=== PATIENT | female | born 1985 | race Caucasian/White ===

== ENCOUNTER 2017-06-20 10:44 | Outpatient (CLI) | payer BC ==
[~2017-06-20] VITALS: Ht 165.1 cm; Wt 93.0 kg
[~2017-06-20 10:44] MED LIST: FER325 PO; PRENAT PO
--- NOTE | 2017-06-20 11:24 | RADRPT ---
PROCEDURE: US OB biophysical profile. CLINICAL INDICATION: decreased movements TECHNIQUE: Multiple sonographic images of the pelvis were obtained. The images were reviewed on a PACS workstation. COMPARISON: No prior studies are available for comparison. FINDINGS: There is a single viable intrauterine gestation. Cardiac activity is present with 146 beats per min cassius. There is a vertex presentation. The placenta is anterior. There is no evidence of placental abruption. There is a normal amount of amniotic fluid with an MARCY = 12.9 cm. Biophysical profile: movement 2/2 tone 2/2. breathing 2/2 MARCY 2/2 Total 02/18 RPTAT: AA . IMPRESSION: Normal biophysical profile. . .King Lowry MD, MD Date Time Electronically viewed and signed by .King Lowry MD, MD on 06/20/2017 11:24 .S/
[2017-06-20 11:37] LABS: BASOPHILS % 0.3 % (0.0-2.0); EOSINOPHILS # 0.2 10^3/ul (0.0-0.5); EOSINOPHILS % 2.2 % (0.0-7.0); HEMATOCRIT 32.7 % (37.0-47.0); HEMOGLOBIN 10.8 g/dl (12.0-16.0); LYMPHOCYTES # 1.3 10^3/ul (0.8-2.9); LYMPHOCYTES % 14.9 % (15.0-51.0); MEAN CORPUSCULAR HEMOGLOBIN 30.1 pg (29.0-33.0); MEAN CORPUSCULAR VOLUME 91.1 fl (82.0-101.0); MEAN PLATELET VOLUME 12.2 fl (7.4-10.4); MONOCYTE # 0.5 10^3/ul (0.3-0.9); MONOCYTES % 5.5 % (0.0-11.0); NEUTROPHIL # 6.8 10^3/ul (1.6-7.5); NEUTROPHILS % 76.5 % (39.0-77.0); PLATELET COUNT 165 10^3/UL (140-415); RED BLOOD COUNT 3.59 10^6/ul (4.20-5.40); RED CELL DISTRIBUTION WIDTH 13.3 % (11.5-14.5); WHITE BLOOD COUNT 8.9 10^3/ul (4.8-10.8)
[2017-06-20 11:45] LABS: ADD UMIC NO; UR ASCORBIC ACID NEGATIVE (NEGATIVE); UR BILIRUBIN (Dip) NEGATIVE (NEGATIVE); UR BLOOD (Dip) NEGATIVE (NEGATIVE); UR CLARITY CLEAR (CLEAR); UR COLOR STRAW (YELLOW); UR GLUCOSE (Dip) NEGATIVE (NEGATIVE); UR KETONES (Dip) NEGATIVE (NEGATIVE); UR LEUKOCYTE ESTERASE (Dip) NEGATIVE Leu/ul (NEGATIVE); UR NITRITE (Dip) NEGATIVE (NEGATIVE); UR SPECIFIC GRAVITY (Dip) 1.003 (1.003-1.030); UR TOTAL PROTEIN (Dip) NEGATIVE (NEGATIVE); UR UROBILINOGEN (Dip) NEGATIVE (NEGATIVE)
[2017-06-20 11:48] VITALS: Ht 165.1 cm; Wt 93.0 kg
[2017-06-20 11:55] LABS: ALBUMIN 3.2 g/dl (3.3-4.9); ALBUMIN/GLOBULIN RATIO 0.91; BILIRUBIN,INDIRECT 0.4 mg/dl (0-1.1); BILIRUBIN,TOTAL 0.4 mg/dl (0.2-1.3); CALCIUM 9.2 mg/dl (8.4-10.2); CREATININE 0.68 mg/dl (0.44-1.00); POTASSIUM 4.5 mmol/L (3.5-5.1); TOTAL PROTEIN 6.7 g/dl (6.1-8.1); URIC ACID 4.2 mg/dl (3.1-7.9)
--- NOTE | 2017-06-20 12:39 | PN ---
Triage Information Date/Time Reason for visit: Itching Weeks of Gestation 35+ /Para 3/1 Diabetes: none Hypertention: none Objective Heart Rate: 140's Contractions: None Results/Medications Result Diagram: 06/20/17 1120 06/20/17 1120 Results 24 hrs Laboratory Tests Test 06/20/17 11:20 White Blood Count 8.9 Red Blood Count 3.59 L Hemoglobin 10.8 L Hematocrit 32.7 L Mean Corpuscular Volume 91.1 Mean Corpuscular Hemoglobin 30.1 Mean Corpuscular Hemoglobin Concent 33.0 Red Cell Distribution Width 13.3 Platelet Count 165 Mean Platelet Volume 12.2 #H Neutrophils % 76.5 Lymphocytes % 14.9 L Monocytes % 5.5 Eosinophils % 2.2 Basophils % 0.3 Nucleated Red Blood Cells % 0.0 Neutrophils # 6.8 Lymphocytes # 1.3 Monocytes # 0.5 Eosinophils # 0.2 Basophils # 0.0 Nucleated Red Blood Cells # 0.0 Urine Color STRAW Urine Clarity CLEAR Urine pH 6.0 Urine Specific [place] 1.003 Urine Ketones NEGATIVE Urine Nitrite NEGATIVE Urine Bilirubin NEGATIVE Urine Urobilinogen NEGATIVE Urine Leukocyte Esterase NEGATIVE Urine Hemoglobin NEGATIVE Urine Glucose NEGATIVE Urine Total Protein NEGATIVE Sodium Level 138 Potassium Level 4.5 Chloride Level 107 Carbon Dioxide Level 23 Anion Gap 13 Blood Urea Nitrogen 10 Creatinine 0.68 Glucose Level 77 Uric Acid 4.2 Calcium Level 9.2 Total Bilirubin 0.4 Direct Bilirubin 0.00 Indirect Bilirubin 0.4 Aspartate Amino Transf (AST/SGOT) 65 H Alanine Aminotransferase (ALT/SGPT) 93 H Alkaline Phosphatase 264 H Total Protein 6.7 Albumin 3.2 L Globulin 3.50 H Albumin/Globulin Ratio 0.91 Disposition: Discharge Assessment/Plan Elevated liver enzymes ,Ursodiol 300 mg BID Precautions given NST BPP in 2 days F/u with PMD DESTINEE DIEZ M.D. Jun 20, 2017 12:39
--- NOTE | 2017-06-20 13:55 | TRIAGE ---
OB Triage Datetime Report Generated by CPN: 06/20/2017 13:55 Datetime: 06/20/2017 12:06 Comments: NST DONE Datetime: 06/20/2017 11:29 Vaginal Exam Dilatation (cms): 0.0 Effacement (%): 0 Station: -4 Exam By: TM Datetime: 06/20/2017 11:11 Labor Evaluation Monitor Mode: External Resting Tone [place]: Relaxed Heart Rate FHR Baseline Rate: 140 Monitor Mode: External US FHR Baseline Changes: No Baseline Change Variability: Moderate 6-25 bpm Accelerations: 15X15 Decelerations: None Category: Category I Pain Assessment Pain Presence: None/Denies Datetime: 06/20/2017 11:00 Assessment Type: Triage Maternal Assessment Level of Consciousness: Fully Conscious DTR's/Clonus: DTRs 2+; No Clonus Headache: Denies Blurred Vision: No Respiratory Effort: Unlabored; Regular Rhythm; Equal Expansion Breath Sounds, Left: Clear and Equal Breath Sounds, Right: Clear and Equal Nausea/Vomiting: Denies RUQ Epigastric Pain: Denies Lower Extremities Edema: Bilateral Lower Extremities Degree: 1+ Upper Extremities Edema: None Degree: None Facial Edema: None Fall Risk Assessment History of Falling: (0) No Secondary Diagnosis: (0) No Ambulatory Aid: (0) Bedrest/Nurse Assist IV Therapy: (0) No Gait: (0) Normal/Bedrest/Immobile Mental Status: (0) Oriented to Own Ability Fall Score: 0 Fall Risk Score Definition: No Risk: No action required Datetime: 06/20/2017 10:55 EGA: 35.6 Datetime: 06/20/2017 10:46 Stage of : OB Triage Datetime: 06/20/2017 10:30 Time of Arrival: 06/20/2017 10:30 Arrived By: Ambulatory Arrived From: Home Chief Complaint: Itching in hands and feet Movement: Present Contractions: Denies/Absent Rupture of Membranes: Denies Vaginal Discharge: Denies Recent Sexual Intercouse: Denies Abdominal Trauma: Not Applicable Time Provider Notified: 06/20/2017 11:00 Provider Notified: Hank
== END 2017-06-20 12:40 | disposition home or self-care (01) ==
LOC: L-D 10:44 → OBT 10:44
PROVIDERS: ATTEND Obstetrics & Gynecology
DX: O26.893 Other specified pregnancy related conditions, third trimester (principal); L29.9 Pruritus, unspecified; Z3A.35 35 weeks gestation of pregnancy
CPT/HCPCS: 36415; 76818; 80053; 81003; 84560; 85025; Z7500; G0463

== ENCOUNTER 2017-06-22 09:00 | Inpatient (IN) | payer BC ==
[~2017-06-22] VITALS: Ht 165.1 cm; Wt 91.7 kg
[2017-06-22 09:21] VITALS: BP 114/77; PULSE 82; RESP 19; Ht 165.1 cm; Wt 91.7 kg
[2017-06-22 10:08] LABS: BASOPHILS % 0.5 % (0.0-2.0); EOSINOPHILS # 0.2 10^3/ul (0.0-0.5); HEMATOCRIT 33.8 % (37.0-47.0); HEMOGLOBIN 11.3 g/dl (12.0-16.0); LYMPHOCYTES # 1.6 10^3/ul (0.8-2.9); LYMPHOCYTES % 24.4 % (15.0-51.0); MEAN CORPUSCULAR HEMOGLOBIN 30.1 pg (29.0-33.0); MEAN CORPUSCULAR HGB CONC 33.4 g/dl (32.0-37.0); MEAN CORPUSCULAR VOLUME 89.9 fl (82.0-101.0); MEAN PLATELET VOLUME 11.9 fl (7.4-10.4); MONOCYTE # 0.4 10^3/ul (0.3-0.9); MONOCYTES % 6.1 % (0.0-11.0); NEUTROPHIL # 4.2 10^3/ul (1.6-7.5); NEUTROPHILS % 65.2 % (39.0-77.0); PLATELET COUNT 163 10^3/UL (140-415); RED BLOOD COUNT 3.76 10^6/ul (4.20-5.40); RED CELL DISTRIBUTION WIDTH 13.4 % (11.5-14.5); WHITE BLOOD COUNT 6.4 10^3/ul (4.8-10.8)
[2017-06-22 10:28] LABS: ALBUMIN 3.2 g/dl (3.3-4.9); ALBUMIN/GLOBULIN RATIO 0.88; BILIRUBIN,INDIRECT 0.3 mg/dl (0-1.1); BILIRUBIN,TOTAL 0.3 mg/dl (0.2-1.3); CALCIUM 8.9 mg/dl (8.4-10.2); CREATININE 0.7 mg/dl (0.44-1.00); INR 0.85; POTASSIUM 4.1 mmol/L (3.5-5.1); PROTIME 11.7 Sec (11.9-14.9); PT RATIO 0.9; TOTAL PROTEIN 6.8 g/dl (6.1-8.1); URIC ACID 4.6 mg/dl (3.1-7.9)
--- NOTE | 2017-06-22 10:29 | RADRPT ---
PROCEDURE: Obstetrical ultrasound for biophysical profile CLINICAL INDICATION: Biophysical profile. . TECHNIQUE: Obstetrical ultrasound of the uterus for biophysical profile. Transabdominal views are obtained. COMPARISON: US PELVIS 06/20/2017 FINDINGS: Single intrauterine gestation. Presentation: Cephalic. Placenta: Anterior. No evidence of placental abruption. No evidence of placenta previa. breathing movement = 2/2 tone = 2/2 motion = 2/2 MARCY = 2/2 MARCY = 11 cm heart rate: 138 beats per minute IMPRESSION: Single intrauterine gestation. Biophysical profile 02/18 RPTAT: AADD .Mynor Turner MD, MD Date Time Electronically viewed and signed by .Mynor Turner MD, on 06/22/2017 10:28 .B/
--- NOTE | 2017-06-22 11:18 | HP ---
Date/Time of Note Date/Time of Note DATE: 06/22/17 TIME: 11:16 OB - History Hx of Present Free Text/Dictation 36+1 with suspected Cholestasis of and Increasing liver enzymes : 3 Para: 2 Care: Good Care Ultrasounds: Normal mid trimester US Obstetrical Complications: None Past Family/Social History * Past Medical, Surgical, Family and Obstetric Histories reviewed from chart. OB Admission Exam Vital Signs Vital Signs Vital Signs Date Time Temp Pulse Resp B/P Pulse Ox O2 Delivery O2 Flow Rate FiO2 06/22/17 09:21 98.2 82 19 114/77 99 Room Air Physical Exam Abdomen: WNL Membranes: Intact Heart Rate: 140's Accelerations: Accelerations Present Decelerations: No Decelerations Varibility: Moderate Contractions on Admission: None Last 72 hours Lab Results CBC & BMP 06/22/17 09:58 Liver Function Test 06/22/17 09:58 Alanine Aminotransferase (ALT/SGPT) 197 H Albumin 3.2 L Alkaline Phosphatase 290 H Aspartate Amino Transf (AST/SGOT) 118 H Direct Bilirubin 0.00 Total Protein 6.8 OB Assessment/Plan Reason for admission: observation Plan: Expectant Management Other plan: Continious monitoring PIH labs for tomorrow Prenatalogy consult DESTINEE DIEZ M.D. Jun 22, 2017 11:18
[2017-06-22 11:31] LABS: ALBUMIN 3.2 g/dl (3.3-4.9); BILIRUBIN,INDIRECT 0.3 mg/dl (0-1.1); BILIRUBIN,TOTAL 0.3 mg/dl (0.2-1.3); TOTAL PROTEIN 6.7 g/dl (6.1-8.1)
[2017-06-22] MEDS ORDERED: LACTATED RINGER'S 1,000 ML IV SCH (11:52)
--- NOTE | 2017-06-22 12:14 | TRIAGE ---
OB Triage Datetime Report Generated by CPN: 06/22/2017 12:13 Datetime: 06/22/2017 11:30 Stage of : OB Triage Maternal Assessment Level of Consciousness: Fully Conscious DTR's/Clonus: DTRs 1+ Headache: Denies Breath Sounds, Left: Clear and Equal Breath Sounds, Right: Clear and Equal Nausea/Vomiting: Denies RUQ Epigastric Pain: Denies Labor Evaluation Frequency: OCC Monitor Mode: External Duration (sec)2399: 40-50 Quality: Mild Pattern: Normal: <= 5 Contractions in 10 Minutes Resting Tone [place]: Relaxed Heart Rate FHR Baseline Rate: 135 Monitor Mode: External US Variability: Moderate 6-25 bpm Accelerations: 15X15 Decelerations: None Category: Category I Pain Assessment Pain Scale: 0 Pain Presence: None/Denies Pain Type: N/A Pain Goal: 3 Vaginal Exam Membrane Status: Intact Datetime: 06/22/2017 10:50 Stage of : OB Triage Maternal Assessment Level of Consciousness: Fully Conscious DTR's/Clonus: DTRs 1+ Headache: Denies Breath Sounds, Left: Clear and Equal Breath Sounds, Right: Clear and Equal Nausea/Vomiting: Denies RUQ Epigastric Pain: Denies Labor Evaluation Frequency: OCC Monitor Mode: External Duration (sec)2399: 40-50 Quality: Mild Pattern: Normal: <= 5 Contractions in 10 Minutes Resting Tone [place]: Relaxed Heart Rate FHR Baseline Rate: 135 Monitor Mode: External US Variability: Moderate 6-25 bpm Accelerations: 15X15 Decelerations: None Pain Assessment Pain Scale: 0 Pain Presence: None/Denies Pain Type: N/A Pain Goal: 3 Vaginal Exam Membrane Status: Intact Datetime: 06/22/2017 10:00 Stage of : OB Triage Maternal Assessment Level of Consciousness: Fully Conscious DTR's/Clonus: DTRs 1+ Headache: Denies Breath Sounds, Left: Clear and Equal Breath Sounds, Right: Clear and Equal Nausea/Vomiting: Denies RUQ Epigastric Pain: Denies Labor Evaluation Frequency: OCC Monitor Mode: External Duration (sec)2399: 40-50 Quality: Mild Pattern: Normal: <= 5 Contractions in 10 Minutes Resting Tone [place]: Relaxed Heart Rate FHR Baseline Rate: 135 Monitor Mode: External US Variability: Moderate 6-25 bpm Accelerations: 15X15 Decelerations: None Category: Category I Pain Assessment Pain Scale: 0 Pain Presence: None/Denies Pain Type: N/A Pain Goal: 3 Vaginal Exam Membrane Status: Intact Datetime: 06/22/2017 09:32 Maternal Assessment Level of Consciousness: Fully Conscious DTR's/Clonus: DTRs 1+ Headache: Denies Blurred Vision: No Respiratory Effort: Unlabored Breath Sounds, Left: Clear and Equal Breath Sounds, Right: Clear and Equal Nausea/Vomiting: Denies RUQ Epigastric Pain: Denies Facial Edema: None Labor Evaluation Frequency: OCC Monitor Mode: External Duration (sec)2399: 40-50 Quality: Mild Pattern: Normal: <= 5 Contractions in 10 Minutes Resting Tone [place]: Relaxed Heart Rate FHR Baseline Rate: 135 Monitor Mode: External US Variability: Moderate 6-25 bpm Accelerations: 15X15 Decelerations: None Category: Category I Pain Assessment Pain Scale: 0 Pain Presence: None/Denies Pain Type: N/A Pain Goal: 3 Vaginal Exam Membrane Status: Intact Datetime: 06/22/2017 09:10 Assessment Type: Triage Maternal Assessment Level of Consciousness: Fully Conscious DTR's/Clonus: DTRs 2+; No Clonus Headache: Denies Blurred Vision: No Respiratory Effort: Unlabored; Regular Rhythm; Equal Expansion Breath Sounds, Left: Clear and Equal Breath Sounds, Right: Clear and Equal Nausea/Vomiting: Denies RUQ Epigastric Pain: Denies Lower Extremities Edema: None Degree: None Upper Extremities Edema: None Degree: None Facial Edema: None Fall Risk Assessment History of Falling: (0) No Secondary Diagnosis: (0) No Ambulatory Aid: (0) Bedrest/Nurse Assist IV Therapy: (0) No Gait: (0) Normal/Bedrest/Immobile Mental Status: (0) Oriented to Own Ability Fall Score: 0 Fall Risk Score Definition: No Risk: No action required Datetime: 06/22/2017 08:55 Arrived By: Ambulatory Arrived From: Home Chief Complaint: PT CAME IN FOR NST AND BPP FOR CHOLESTASIS Movement: Present Contractions: Denies/Absent Rupture of Membranes: Denies Vaginal Discharge: Denies Recent Sexual Intercouse: Denies Abdominal Trauma: Not Applicable Additional Patient Complaints: NONE Time Provider Notified: 06/22/2017 09:16 Provider Notified: CHARY Initial Plan: NST ,BPP, CMP, Datetime: 06/20/2017 11:00 Fall Score: 0 Fall Risk Score Definition: No Risk: No action required Datetime: 06/20/2017 10:55 EGA: 35.6
[2017-06-22] MEDS: URSODIOL 300 MG CAP PO SCH (21:28)
[2017-06-23 08:42] LABS: BASOPHILS % 0.3 % (0.0-2.0); EOSINOPHILS # 0.2 10^3/ul (0.0-0.5); EOSINOPHILS % 2.4 % (0.0-7.0); HEMATOCRIT 33.4 % (37.0-47.0); HEMOGLOBIN 10.9 g/dl (12.0-16.0); LYMPHOCYTES % 26.2 % (15.0-51.0); MEAN CORPUSCULAR HEMOGLOBIN 29.9 pg (29.0-33.0); MEAN CORPUSCULAR HGB CONC 32.6 g/dl (32.0-37.0); MEAN CORPUSCULAR VOLUME 91.5 fl (82.0-101.0); MEAN PLATELET VOLUME 12.5 fl (7.4-10.4); MONOCYTE # 0.4 10^3/ul (0.3-0.9); MONOCYTES % 5.6 % (0.0-11.0); NEUTROPHILS % 64.8 % (39.0-77.0); PLATELET COUNT 169 10^3/UL (140-415); RED BLOOD COUNT 3.65 10^6/ul (4.20-5.40); RED CELL DISTRIBUTION WIDTH 13.9 % (11.5-14.5); WHITE BLOOD COUNT 7.6 10^3/ul (4.8-10.8)
[2017-06-23 09:00] LABS: ALBUMIN 3.2 g/dl (3.3-4.9); ALBUMIN/GLOBULIN RATIO 0.88; BILIRUBIN,INDIRECT 0.3 mg/dl (0-1.1); BILIRUBIN,TOTAL 0.3 mg/dl (0.2-1.3); CALCIUM 9.2 mg/dl (8.4-10.2); CREATININE 0.73 mg/dl (0.44-1.00); POTASSIUM 4.2 mmol/L (3.5-5.1); TOTAL PROTEIN 6.8 g/dl (6.1-8.1)
[2017-06-23] MEDS ORDERED: PRENATAL VITAMIN PO SCH (09:00)
[2017-06-23] MEDS ORDERED: FERROUS SULFATE (EC) 325 MG TAB PO SCH (09:00)
[2017-06-23] MEDS: PRENATAL VITAMIN PO SCH (09:05)
[2017-06-23] MEDS: DOCUSATE SODIUM 100 MG CAP PO SCH (09:05)
[2017-06-23] MEDS: URSODIOL 300 MG CAP PO SCH ×3 (09:05→21:00)
[2017-06-23] MEDS: FERROUS SULFATE (EC) 325 MG TAB PO SCH (09:05)
[2017-06-23 09:10] LABS: INR 0.87; PROTIME 11.9 Sec (11.9-14.9); PT RATIO 0.9
[2017-06-23 09:11] LABS: PARTIAL THROMBOPLASTIN TIME 23.4 Sec (25.0-35.0)
[2017-06-23] MEDS ORDERED: DIPHENHYDRAMINE 25 MG CAP PO PRN (10:00)
[2017-06-23 10:17] LABS: FIBRIN SPLIT PRODUCT <10 ug/ml (<10)
--- NOTE | 2017-06-23 10:19 | QN ---
Documentation Comment progress note patient seen and evaluated complains of generalized itching vs stable afebrile abd gravid nt extremity no edema no calf tenderness a/ iup at 36 wks 2 days ga, previous cd, elevated liver enzymes, cholestasis p/ retain records discuss with perinatology for timing of delivery continue KIN Montero MD Jun 23, 2017 10:19
[2017-06-23] MEDS ORDERED: CEFAZOLIN 2 GM/50 ML (PMX) 50 ML IV SCH (16:30)
[2017-06-23] MEDS ORDERED: CARBOPROST 250 MCG INJ IM PRN ×2 (16:30→20:30)
[2017-06-23] MEDS ORDERED: OXYTOCIN 30 UNITS/LR 500 ML IV PRN ×2 (16:30→20:30)
[2017-06-23] MEDS ORDERED: METHYLERGONOVINE 0.2 MG INJ IM PRN ×2 (16:30→20:30)
[2017-06-23] MEDS ORDERED: MISOPROSTOL 200 MCG TAB PR PRN ×2 (16:30→20:30)
[2017-06-23] MEDS ORDERED: LACTATED RINGER'S 1,000 ML IV SCH (16:42)
[2017-06-23] MEDS ORDERED: CITRIC ACID/SODIUM CITRATE 15 ML CUP ONE (19:12)
--- NOTE | 2017-06-23 19:18 | QN ---
Documentation Comment patient was seen and evaluated by Dr. Vidal this morning. Recommend to deliver patient. r/b/a explained in detail to patient and agree with plan KIN FAGAN MD Jun 23, 2017 19:17
[2017-06-23] MEDS ORDERED: OXYTOCIN 30 UNITS/LR 500 ML IV ONE (19:24)
[2017-06-23] MEDS ORDERED: METOCLOPRAMIDE 10 MG INJ ONE (19:25)
[2017-06-23] MEDS ORDERED: KETOROLAC 30 MG INJ ONE (19:25)
[2017-06-23] MEDS ORDERED: morphine SULFATE/PF (10 MG/10 ML) INJ ONE (19:25)
[2017-06-23] MEDS ORDERED: ONDANSETRON 4 MG INJ ONE (19:25)
[2017-06-23] MEDS ORDERED: CITRIC ACID/SODIUM CITRATE 15 ML CUP PO ONE (19:30)
[2017-06-23] MEDS ORDERED: PHENYLephrine (100 MCG/ML) 5ML SYG ONE (19:38)
--- NOTE | 2017-06-23 20:09 | DELSUM ---
Delivery Summary A-C Datetime Report Generated by CPN: 06/23/2017 20:08 DELIVERY PERSONNEL Supervisor [place]: [place], [place] MATERNAL INFORMATION Delivery Anesthesia: Spinal Medications in Delivery: see anesthesia records Placenta Cultured: No Maternal Complications: Other Other Maternal Complications: cholestasis LABOR SUMMARY EDC: 07/19/2017 00:00 No. Babies in Womb: 1 Attempted: No Labor Anesthesia: Intrathecal LABOR INFORMATION Reason for Induction: Not Applicable Oxytocin: N/A Group B Beta Strep: Not Done Antibiotics # of Doses: 1 Antibiotics Time of Last Dose: 06/23/2017 19:33 Steroids Given: None Reason Steroids Not Administered: Not Applicable MEMBRANES Membranes Rupture Method: Artificial Rupture of Membranes: 06/23/2017 19:50 Length of Rupture (hr): 0.02 Amniotic Fluid Color: Clear Amniotic Fluid Amount: Moderate STAGES OF LABOR Stage 3 hr: 0 Stage 3 min: 1 CSECTION DELIVERY Primary Indication: Repeat Elective Secondary Indication: Other Other Secondary Indication: CHOLESTASIS CSection Urgency: Elective CSection Incidence: Repeat Labor: No Labor Elective: Elective CSection Incision: Lower Uterine Transverse BABY A INFORMATION Delivery Date/Time: 06/23/2017 19:51 Method of Delivery: Born in Route : No : N/A Forceps: N/A Vacuum Extraction: N/A Shoulder Dystocia : N/A SHOULDER DYSTOCIA BABY A Delivery Date/Time: 06/23/2017 19:51 PRESENTATION/POSITION BABY A Presentation: Cephalic Cephalic Presentation: Vertex Breech Presentation: N/A PLACENTA INFORMATION BABY A Placenta Delivery Time : 06/23/2017 19:52 Placenta Method of Delivery: Manual Removal Placenta Status: Delivered SCORES BABY A Heart Rate 1 min: >100 bpm Resp Effort 1 min: Good Cry Reflex Irritability 1 min: Cough/Sneeze/Pulls Away Muscle Tone 1 min: Active Motion Color 1 min: Body [place], Extremit Blue Resuscitation Effort 1 min: Tactile Stimulation SCORE 1 MIN: 9 Heart Rate 5 min: >100 bpm Resp Effort 5 min: Good Cry Reflex Irritability 5 min: Cough/Sneeze/Pulls Away Muscle Tone 5 min: Active Motion Color 5 min: Body [place], Extremit Blue Resuscitation Effort 5 min: Tactile Stimulation SCORE 5 MIN: 9 INFORMATION BABY A Gestational Age at Delivery: 36.2 Gestational Status: Late - 34- 36.6 Weeks Outcome : Liveborn Infant Condition : Stable Infant Sex: Male IDENTIFICATION/MEDS BABY A ID Band Number: [id number] ID Band Location: Right Leg; Left Leg Sensor Applied: Yes Sensor Number: [id number] Sensor Location : Cord Clamp Vitamin K Given : Not Given Erythromycin Given: Not Given WEIGHT/LENGTH BABY A Birthweight (gm): 2875 Weight (lb): 6 Weight (oz): 5 Length (in): 19.00 Infant Length (cm): 48.26 CORD INFORMATION BABY A No. Cord Vessels: 3 Nuchal Cord : N/A Cord Blood Taken: Yes Suction: Mouth; Nose ASSESSMENT BABY A Complications: None Physical Findings at Delivery: Within Normal Limits Infant Respirations: Appears Normal House Mover/ALS Called : No Care By: Yodit WILLETT/Ara RODRIGUEZ Transferred To: Remains with Mother
--- NOTE | 2017-06-23 20:17 | OPPN ---
Date/Time of Note Date/Time of Note DATE: 06/23/17 TIME: 20:16 Operative Report Planned Procedure Procedure date Jun 23, 2017 Procedure(s) repeat low transverse CD Performed by see signature line Transport Tech Dr. Ramirez Pre-procedure diagnosis iup at 36 wks 2 days ga, previous cd, elevated liver enzymes, cholestasis Anesthesia Type: spinal Post-Procedure Post-procedure diagnosis same Findings Live Baby [male], Apgars [9/9] and [], weight [6lb 5 oz], position [], [] presentation []cord. Estimated Blood Loss: 500 - 600 mls Specimen(s) none Grafts/Implant(s) none Complication(s) none KIN FAGAN MD Jun 23, 2017 20:17
[2017-06-23] MEDS: LACTATED RINGER'S 1,000 ML IV SCH (20:18)
[2017-06-23] MEDS ORDERED: ONDANSETRON 4 MG INJ IV PRN (20:30)
[2017-06-23] MEDS ORDERED: morphine 2 MG INJ IV PRN ×2 (20:30)
[2017-06-23] MEDS ORDERED: LANOLIN 7 GM TUBE TOP PRN (20:30)
[2017-06-23] MEDS ORDERED: MEPERIDINE 25 MG INJ IV PRN (20:30)
[2017-06-23] MEDS ORDERED: EPHEDrine SULFATE 50 MG/5 ML SYG IV PRN (20:30)
[2017-06-23] MEDS ORDERED: morphine 4 MG/ML VIAL IV PRN (20:30)
[2017-06-23] MEDS ORDERED: NALOXONE (0.4 MG/ML) INJ IV PRN (20:30)
[2017-06-23] MEDS ORDERED: morphine (1 MG/ML) 10ML SYRINGE IV PRN ×3 (20:30)
[2017-06-23] MEDS ORDERED: OXYCODONE/ACETAMINOPHEN (5/325) TAB PO PRN ×2 (20:30)
[2017-06-23] MEDS ORDERED: DIPHENHYDRAMINE 50 MG INJ IV PRN ×2 (20:30)
[2017-06-23] MEDS: CEFAZOLIN 2 GM/50 ML (PMX) 50 ML IV SCH (20:47)
--- NOTE | 2017-06-23 20:58 | CONS ---
DATE OF ADMISSION: 06/22/2017 DATE OF CONSULTATION: 06/23/2017 HISTORY OF PRESENT ILLNESS: The patient is a 31-year-old with intrauterine at 36 weeks an d 2 days. She was admitted to the hospital with complaint of itching and liver function tests were abnormal. She has a diagnosis of cholestasis and is on Actigall. OBSTETRIC HISTORY: Significant for x1 secondary to genital herpes. Otherwise, her histor y is negative. PHYSICAL EXAMINATION: Vital signs are stable and physical examination deferred. heart tones reassuring. There are no contractions. LABORATORY VALUES: AST and ALT are elevated, they were elevated yesterday and they are further elev ated today. IMPRESSION: 1. Intrauterine at 36 weeks and 2 days with cholestasis, with worsening liver enzymes. Currently on Actigall. 2. History of genital herpes. She is currently, per patient, on suppressive therapy. RECOMMENDATIONS: Given abnormal liver function tests and worsening, delivery is recommended. I spo ke to the patient in the presence of her sister, about the possibility of the NICU admission of the after delivery with lung problems, and the possibility is as high as about 6%. She understa nds and she consents to delivery at this point. I spoke to Dr. Fagan about the plan. The patient should continue with that Actigall until after delivery and her liver functions are norm alized. Dictated By: ABELINO SANABRIA MD ST/NTS Conf#: [id number] DID#: [id number] CC: KIN FAGAN MD;*EndCC*
[2017-06-23] MEDS ORDERED: OXYTOCIN 30 UNITS/LR 500 ML IV SCH (21:00)
[2017-06-23] MEDS: SENNA/DOCUSATE NA (8.6MG/50MG) TAB PO SCH (21:00)
[2017-06-23] MEDS: KETOROLAC 30 MG INJ IV PRN (21:05)
[2017-06-23] MEDS: OXYTOCIN 30 UNITS/LR 500 ML IV SCH (21:06)
[2017-06-23 23:30] VITALS: BP 132/79; PULSE 91; RESP 20
[2017-06-24] VITALS (8 sets, daily range): BP systolic 101–125; BP diastolic 58–76; PULSE 71–94; RESP 17–21
[2017-06-24] MEDS: OXYTOCIN 30 UNITS/LR 500 ML IV SCH ×2 (00:57→05:19)
[2017-06-24] MEDS: LACTATED RINGER'S 1,000 ML IV SCH ×3 (04:18→18:48)
[2017-06-24] MEDS: CEFAZOLIN 2 GM/50 ML (PMX) 50 ML IV SCH ×2 (04:30→12:51)
[2017-06-24] MEDS: IBUPROFEN 600 MG TAB PO SCH ×4 (06:00→18:00)
--- NOTE | 2017-06-24 08:05 | PN ---
Date/Time of Note Date/Time of Note DATE: 06/24/17 TIME: 08:02 Assessment/Plan VTE Prophylaxis VTE Prophylaxis Intervention: ambulation Lines/Catheters IV Catheter Type (from Nrsg): Peripheral IV Subjective 24 Hr Interval Summary Free Text/Dictation Anesthesia note: A 31 year old female s/p spinal duramorph is doing well, pain is controlled, no N/V, itching, headache, neural deficit or back pain. back is clean. care per surgery Exam/Review of Systems Vital Signs Vitals Vital Signs Date Time Temp Pulse Resp B/P Pulse Ox O2 Delivery O2 Flow Rate FiO2 06/24/17 05:52 97 21 06/24/17 04:00 98.5 71 21 101/63 Room Air Intake and Output 06/23/17 06/23/17 06/24/17 15:00 23:00 07:00 Intake Total 800 ml 1294 ml Output Total 370 ml Balance 800 ml 924 ml Results Result Diagram: 06/23/17 0734 06/23/17 0734 Medications Medications Current Medications Prenat Multivit/ Public Health Dietitian/Iron/Folic Ac () 1 tab DAILY PO Last administered on 06/23/17 09:05; Admin Dose 1 TAB; Start 06/23/17 at 09:00 Docusate Sodium (Colace) 100 mg DAILY PO Last administered on 06/23/17 09:05 ; Admin Dose 100 MG; Start 06/23/17 at 09:00 Ferrous Sulfate (Ferrous Sulfate (Ec)) 325 mg DAILY PO Last administered on 09:05; Admin Dose 325 MG; Start 06/23/17 at 09:00 Ursodiol 300 mg 300 mg TID PO Last administered on 06/23/17 12:57; Admin Dose 300 MG; Start 06/23/17 at 13:00 Lactated Ringer's 1,000 ml @ 125 mls/hr Q8H IV ; Start 06/23/17 at 20:18 Cefazolin Sodium/ Dextrose (Ancef 2 Gm/50 ml (Pmx)) 50 ml @ 100 mls/hr Q8H IV Last administered on 06/24/17 04:30; Admin Dose 100 MLS/HR; Start 06/23/17 at 20:30; Stop 06/24/17 at 12:59 Oxycodone/ Acetaminophen (Percocet (5/ 325)) 1 tab Q4H PRN PO PAIN LEVEL 4-6; Start 06/23/17 at 20:30 Oxycodone/ Acetaminophen (Percocet (5/ 325)) 2 tab Q4H PRN PO PAIN LEVEL 7-10; Start 06/23/17 at 20:30 Ibuprofen (Motrin) 600 mg Q6 PO ; Start 06/24/17 at 00:00 Simethicone (Mylicon) 160 mg Q8H PRN PO DISTENSION/GAS/BLOATING; Start at 20:30 Senna/Docusate Sodium (Senokot-S) 1 tab BID PO ; Start 06/23/17 at 21:00 Methylergonovine Maleate (Methergine) 0.2 mg ONCE PRN IM VAGINAL BLEEDING; Start 06/23/17 at 20:30 Carboprost Tromethamine (Hemabate) 250 mcg ONCE PRN IM VAGINAL BLEEDING; Start 06/23/17 at 20:30 Misoprostol (Cytotec) 1,000 mcg ONCE PRN AK VAGINAL BLEEDING; Start 06/23/17 at 20:30 Naloxone HCl (Narcan) 0.1 mg Q2M PRN IV FOR RESP RATE 8 OR LESS; Start at 20:30; Stop 06/24/17 at 20:29 Ketorolac Tromethamine (Toradol) 30 mg Q6H PRN IV PAIN Last administered on 21:05; Admin Dose 30 MG; Start 06/23/17 at 20:30; Stop 06/24/17 at 20: 29 Morphine Sulfate (morphine) 2 mg Q2 PRN IV BREAKTHROUGH PAIN; Start 06/23/17 at 20:30; Stop 06/24/17 at 20:29 Morphine Sulfate (morphine) 2 mg Q3H PRN IV PAIN LEVEL 1-5; Start 06/23/17 at 20:30; Stop 06/24/17 at 20:29 Morphine Sulfate (morphine) 4 mg Q3H PRN IV PAIN LEVEL 6-10; Start 06/23/17 at 20:30; Stop 06/24/17 at 20:29 Diphenhydramine HCl (Benadryl) 25 mg Q6H PRN IV ITCHING Last administered on 03:51; Admin Dose 25 MG; Start 06/23/17 at 20:30; Stop 06/24/17 at 20 :29 Ondansetron HCl (Zofran Inj) 4 mg Q6H PRN IV NAUSEA AND/OR VOMITING; Start 05/30 at 20:30; Stop 06/24/17 at 20:29 TY BERG MD Jun 24, 2017 08:05
[2017-06-24] MEDS: DOCUSATE SODIUM 100 MG CAP PO SCH (09:04)
[2017-06-24] MEDS: SENNA/DOCUSATE NA (8.6MG/50MG) TAB PO SCH ×2 (09:04→21:55)
[2017-06-24] MEDS: URSODIOL 300 MG CAP PO SCH ×3 (09:04→21:55)
[2017-06-24] MEDS: PRENATAL VITAMIN PO SCH (09:05)
[2017-06-24] MEDS: FERROUS SULFATE (EC) 325 MG TAB PO SCH (09:05)
[2017-06-24 10:49] LABS: BASOPHILS % 0.4 % (0.0-2.0); EOSINOPHILS # 0.1 10^3/ul (0.0-0.5); HEMATOCRIT 29.5 % (37.0-47.0); HEMOGLOBIN 9.8 g/dl (12.0-16.0); LYMPHOCYTES # 1.6 10^3/ul (0.8-2.9); LYMPHOCYTES % 16.2 % (15.0-51.0); MEAN CORPUSCULAR HEMOGLOBIN 29.9 pg (29.0-33.0); MEAN CORPUSCULAR HGB CONC 33.2 g/dl (32.0-37.0); MEAN CORPUSCULAR VOLUME 89.9 fl (82.0-101.0); MEAN PLATELET VOLUME 12.5 fl (7.4-10.4); MONOCYTE # 0.4 10^3/ul (0.3-0.9); MONOCYTES % 3.9 % (0.0-11.0); NEUTROPHIL # 7.5 10^3/ul (1.6-7.5); NEUTROPHILS % 78.1 % (39.0-77.0); PLATELET COUNT 145 10^3/UL (140-415); RED BLOOD COUNT 3.28 10^6/ul (4.20-5.40); RED CELL DISTRIBUTION WIDTH 13.5 % (11.5-14.5); WHITE BLOOD COUNT 9.6 10^3/ul (4.8-10.8)
--- NOTE | 2017-06-24 11:37 | OPR ---
DATE OF OPERATION: 06/23/2017 PRIMARY DIAGNOSES: Intrauterine at 36 weeks and 2 days gestational age, previous section x1, cholestasis of . Desires elective repeat delivery. Declined vaginal after . POSTOPERATIVE DIAGNOSES: Intrauterine at 36 weeks and 2 days gestational age, previous ce sarean section x1, cholestasis of . Desires elective repeat delivery. Declined v aginal after . PROCEDURE: Repeat low transverse delivery via Pfannenstiel incision. SURGEON: Joe Corrales MD [employer] PRESS FEEDER: Dr. Kuhn. ANESTHESIA: Spinal. COMPLICATIONS: None. ESTIMATED BLOOD LOSS: 500 mL. FINDINGS: A viable male, 9 and 9 respectively at one and five minutes, weight 6 pounds 5 ounc es. Normal uterus, tubes and ovaries. DESCRIPTION OF PROCEDURE: After explaining the risks, benefits and alternatives to the patient and consent signed in chart, the patient was taken to the operating room where spinal anesthesia was fou nd to be adequate. She was then prepared and draped in normal sterile fashion in a dorsal supine po sition with a leftward tilt. Pfannenstiel skin incision was then made with a scalpel and carried to the underlying layer of the fascia. The fascia was incised in the midline and incision was extende d laterally with Landon scissors. The superior aspect of the fascial incision was grasped with curved clamps, elevated and the underlying rectus muscles dissected off bluntly. Attention was then turne d to the inferior aspect of the incision which in similar fashion was grasped, tented up with curved clamps and the rectus muscles dissected off bluntly. The rectus muscle was in midline, p eritoneum identified, tented up and entered sharply with Metzenbaum scissors. The peritoneal incisi on was extended superiorly with good visualization of the bladder. The bladder blade was then inser yessenia and the vesicouterine peritoneum identified, grasped with pickups and entered sharply with Metyeimi avelarm scissors. This incision was extended laterally and a bladder flap created digitally. The josias dder blade was then reinserted and the lower segment incised in transverse fashion with a scalpel. The uterine incision was extended laterally. The bladder blade was removed and the infant's head de livered atraumatically. The nose and mouth were suctioned and cord clamped and cut. The infant was handed off to awaiting implementation coordinator. The placenta was then removed. The uterus exteriorized and c leared of all clots and debris. The uterine incision was repaired with 1-0 chromic in a running loc ked fashion. A second layer of the same suture was used to obtain excellent hemostasis and for imbr ication. The uterus was returned to the abdomen. The gutters were cleared of all clots. The perit oneum and rectus abdominis muscles were reapproximated with 3-0 Vicryl in interrupted fashion. The fascia was reapproximated with 0 Vicryl in a running fashion. The subcutaneous tissue was reapproxi mated with 2-0 plain gut in a running fashion. The skin was closed with absorbable parminder. The pa tient tolerated procedure well. Sponge, lap and needle counts correct x2. The patient was taken to recovery room in stable condition. Dictated By: JOE PEREYRA/ROXANNA Conf#: [id number] DID#: [id number] CC: KEITH KUHN MD;*End*
--- NOTE | 2017-06-24 18:57 | QN ---
Documentation Comment Progress note postoperative day 1 Patient seen and evaluated awake alert oriented 3 No complaints Hassan clear Vital signs stable afebrile Abdomen soft nontender negative distention dressing clean/dry Extremity negative edema no calf tenderness Assessment status post repeat low transverse delivery postop day 1 Stable afebrile Plan iron supplement KIN FAAGN MD Jun 24, 2017 18:57
[2017-06-24] MEDS: KETOROLAC 30 MG INJ IV PRN (19:44)
[2017-06-24] MEDS: FERROUS GLUCONATE (EC) 325 MG TAB PO SCH (21:00)
[2017-06-25] MEDS: IBUPROFEN 600 MG TAB PO SCH ×5 (00:16→23:44)
[2017-06-25 05:08] VITALS: BP 112/56; PULSE 87; RESP 18
[2017-06-25 08:05] VITALS: BP 109/68; PULSE 82; RESP 16
[2017-06-25] MEDS: URSODIOL 300 MG CAP PO SCH ×3 (09:20→20:54)
[2017-06-25] MEDS: DOCUSATE SODIUM 100 MG CAP PO SCH (09:22)
[2017-06-25] MEDS: SENNA/DOCUSATE NA (8.6MG/50MG) TAB PO SCH ×2 (09:22→20:54)
[2017-06-25] MEDS: FERROUS GLUCONATE (EC) 325 MG TAB PO SCH ×2 (09:22→20:54)
[2017-06-25] MEDS: PRENATAL VITAMIN PO SCH (09:23)
--- NOTE | 2017-06-25 12:36 | PD.PPDC ---
[employer] Discharge Instruction Condition Patient Condition: Good Diet Diet: Resume Regular Diet Activity/Restrictions Activity: Normal Activity May Shower Restrictions: No Exercising No Lifting No Driving No Sexual Activity Nothing in the Vagina No [place] No Tampons, douche Wound/Drain Care Instructions Wound/Drain Care Instructions: Remove Steri Strips in 2 weeks Follow-up Follow-up with Physician: 2, Week/Weeks Return to clinic for HANDY WORKER Instructions: Fever greater than 101 Chills Worsening abdominal pain Excessive Vaginal Bleeding More than 2 pads per hour Unable to tolerate diet OB Instructions: Breast Tenderness Depression Blurried Vision Headache Surgical Instructions: Incisional Drainage Incisional Redness KIN FAGAN MD Jun 25, 2017 12:36
--- NOTE | 2017-06-25 12:36 | QN ---
Documentation Comment Progress note postoperative day Patient seen and evaluated awake alert oriented 3 No complaints Hassan clear Vital signs stable afebrile Abdomen soft nontender negative distention dressing c/d/i no distention Extremity negative edema no calf tenderness Assessment status post repeat low transverse delivery postop day 2 Stable afebrile Plan discharge home tomorrow f/u office in 2 weeks KIN FAGAN MD Jun 25, 2017 12:36
--- NOTE | 2017-06-25 14:04 | DS ---
DATE OF ADMISSION: 06/22/2017 DATE OF DISCHARGE: 06/26/2017 PRIMARY DIAGNOSIS: Intrauterine at 36 weeks and 2 days gestational age, previous section x1, cholestasis of , desires elective repeat delivery, declined . PROCEDURE: Repeat low transverse delivery. CONDITION ON DISCHARGE: Stable. ACTIVITY: None per vagina. No heavy lifting x6 weeks. DIET: Regular. MEDICATIONS ON DISCHARGE: 1. Motrin. 2. Percocet. 3. Iron. 4. Colace. 5. Actigall 300 mg p.o. b.i.d. DISCHARGE SUMMARY: Ms. Veronica Ramires is a 31-year-old 2, para 2, status post repeat low jacinto sverse delivery on 06/23/2017. She had a viable male, 9 and 9 respectively at 1 and 5 minutes, weight 6 pounds 5 ounces. She had an uneventful postop day 1 and 2, she was discharged o n postop day 3. Her incision is clean, dry and intact. She is ambulating, tolerating diet, positiv e flatulence, positive bowel movement. She will follow up in the office in 2 weeks for c heck. Dictated By: KIN PEREYRA/ROXANNA Conf#: [id number] DID#: [id number]
[2017-06-25 15:30] VITALS: BP 116/73; PULSE 94; RESP 18
[2017-06-25 19:25] VITALS: BP 120/76; PULSE 90; RESP 17
[2017-06-26 04:15] VITALS: BP 106/74; PULSE 84; RESP 20
[2017-06-26] MEDS: IBUPROFEN 600 MG TAB PO SCH ×2 (05:43→12:00)
[2017-06-26 08:00] VITALS: BP 113/82; PULSE 81; RESP 18
[2017-06-26] MEDS: URSODIOL 300 MG CAP PO SCH (09:18)
[2017-06-26] MEDS: FERROUS GLUCONATE (EC) 325 MG TAB PO SCH (09:18)
[2017-06-26] MEDS: PRENATAL VITAMIN PO SCH (09:18)
[2017-06-26] MEDS: DOCUSATE SODIUM 100 MG CAP PO SCH (09:19)
[2017-06-26] MEDS: SENNA/DOCUSATE NA (8.6MG/50MG) TAB PO SCH (09:19)
== END 2017-06-26 15:09 | disposition home or self-care (01) | DRG 765 ==
LOC: OBT 09:00 → L-D 09:01 → OBT 11:00 → PP1 11:00 → L-D 06-23 16:33 → PP1 06-23 23:20
PROVIDERS: ADMIT Obstetrics & Gynecology; ATTEND Obstetrics & Gynecology
PROC: 10D00Z1 Extraction of Products of Conception, Low, Open Approach (ICD-10-PCS; principal; 2017-06-23 18:30)
DX: O26.62 Liver and biliary tract disorders in childbirth (principal); K83.1 Obstruction of bile duct; Z37.0 Single live birth; Z3A.36 36 weeks gestation of pregnancy; O34.211 Maternal care for low transverse scar from previous cesarean delivery
CPT/HCPCS: 36415; 76818; 80053; 80076; 83789; 84560; 85025; 85362; 85384; 85610; 85730; 86592; 86850; 86900; 86901; 87340; 94760; 99464; G0463; J0690; J1200; J1885; J2274; J2370; J2405; J2590; J2765; J7120